=== PATIENT | female | born 1960 | race Caucasian/White ===

== ENCOUNTER → 2021-10-25 | Outpatient (CLI) | payer BC, SELFPAY ==
--- NOTE | 2021-10-25 09:00 | KNEE_PTH ---
PATIENT: NAT COWAN LOC: [facility] U#:[id number] AGE/SX: 61/F ROOM: RE10/25/[address]: Dr. Ye Anguiano MD : 1960 BED: DIS: 10/25/2021 SPEC #: [id number] RECD: 10/25/21 14:59 STATUS: BRIANNA RESade #: [id number] RENA: 10/25/21 09:[address]: Ye Anguiano DEPT: SURGICAL PATHOLOGY RECD BY: Clementine Cruz ENTERED: 10/28/21 08:40 SP TYPE: TOTAL KNEE OTHR DR: CULLEN Tissues: Knee, NOS Procedures: Decalcification bone/plaque Surgery Specimen Level IV HEADER OPERATION: Left total knee replacement PRE-OP DIAGNOSIS: Left knee grade 4 osteoarthritis TISSUE SUBMITTED: Bone and soft tissue left knee MICROSCOPIC DIAGNOSIS Bone and tissue, left knee, total knee replacement/resection: Pieces of bone with degenerative osteoarthritic changes. Fibroadipose tissue, fibroconnective tissue and reactive synovial tissue. ANNABELLA:cresencio 10/31/2021 MICROSCOPIC DESCRIPTION Slides are reviewed. GROSS DESCRIPTION Received is one container designated bone and soft tissue left knee. The specimen consists of multiple fragments of morejon-yellow bone measuring in aggregate 9 x 9 x 3.5 cm. Also in the specimen container are multiple fragments of yellow-white soft tissue measuring in aggregate 7 x 6 x 2.5 cm. A number of bony fragments contain articular surfaces consistent with tibial plateau and femoral condyle and displaying prominent osteophyte formation, eburnation, and bone erosion. [employer] sections are submitted in two cassettes as follows: 1 - soft tissue, 2 - bone after decalcification. / ANNABELLA:cresencio 10/28/2021 TC:5 [facility]: [id number], [id number]
== END | disposition home or self-care (01) ==
LOC: LABSPEC 15:38
PROVIDERS: Referring Provider Orthopaedic Surgery; Visit Provider Orthopaedic Surgery
DX: M17.12 Unilateral primary osteoarthritis, left knee (principal)
CPT/HCPCS: 88305; 88311

== ENCOUNTER → 2021-11-08 | Outpatient (CLI) | payer BC, SELFPAY ==
--- NOTE | 2021-11-08 14:56 | VDLE_ITS ---
Reason For Study: Pain Procedure LEFT This is a venous duplex using B-mode, color GSV is normal. flow and spectral Doppler. CFV is compressible, spontaneous, phasic, Exam performed in department. competent, and demonstrates normal A preliminary report was called and/or faxed augmentation. to [facility]. FV is compressible, spontaneous, phasic, competent and demonstrates normal augmentation. POP V is compressible, spontaneous, phasic, competent and demonstrates normal augmentation. T/P Trunk is compressible. PTV is compressible. LT PerV is compressible. VL/Venous Duplex US, Unilateral Interpretation Summary Deep veins of the left lower extremity are patent and compressible segmentally. There is no evidence of left lower extremity deep vein thrombosis. Valvular competence appears intac t within the proximal deep venous system on the left . The left great saphenous vein appears patent a nd compressible segmentally. Ordering Physician: Mariana Finnegan Referring Physician: Lea Sanches Performed By: Priscilla Escoto RVT
== END | disposition home or self-care (01) ==
LOC: CVS 14:52
PROVIDERS: PCP Internal Medicine; Referring Provider Physician Assistant; Visit Provider Physician Assistant
DX: M79.605 Pain in left leg (principal)
CPT/HCPCS: 93971

== ENCOUNTER → 2022-01-13 | Outpatient (CLI) | payer BC, SELFPAY ==
--- NOTE | 2022-01-13 08:46 | BI_ITS ---
MAMMOGRAPHY - UNILATERAL DIAGNOSTIC: RIGHT BREAST REASON FOR EXAM: Female, 61 years old. Normal outside screening examination. PERTINENT HISTORY: Personal history of breast cancer. Prior left mastectomy. TECHNIQUE: Compression spot views of the right breast in the craniocaudad and mediolateral oblique views were obtained. CAD: Full Field Digital Mammography with Computer Added Detection was performed. COMPARISON: Comparison is made with prior examination dated 03/17/2014 and outside examination dated 11/15/2020. FINDINGS: Breast Composition: There are scattered areas of fibroglandular density. There are no dominant masses or suspicious calcifications. Stable 3.6 mm well-defined nodule in the axillary region of the right breast suggestive of a small left No other significant abnormalities are identified. BI/DIAG MAMM W/CAD, UNILAT IMPRESSION: Stable unilateral diagnostic mammogram. Correlation with a targeted ultrasound of the right breast is recommended. ASSESSMENT CATEGORY: BIRADS Category 0: Incomplete. Need additional imaging evaluation. A letter regarding these results will be sent to the patient by the facility within 30 days. Approximately 10% of breast cancers are not detected by mammography. A normal mammogram should not delay biopsy of a clinically suspicious abnormality. Electronically Signed: Manjinder Horner MD at 12:38 EST ,
--- NOTE | 2022-01-13 08:46 | US_ITS ---
STUDY: ULTRASOUND BREAST - RIGHT REASON FOR EXAM: Female, 61 years old. Abnormal screening mammogram. History of left breast cancer. TECHNIQUE: Axial and longitudinal images of the RIGHT breast were performed with a high resolution ultrasound transducer. # OF IMAGES: 64 COMPARISON: Comparison is made with prior mammogram done earlier in the day. FINDINGS: RIGHT Breast: The upper inner quadrant of the right breast was examined with ultrasound. No sonographic abnormality is seen. Incidental note is made of a benign-appearing 1.3 cm x 0.8 cm x 0.7 cm lymph node. US/Breast Limited Unilateral IMPRESSION: Small benign-appearing right axillary lymph node. ASSESSMENT CATEGORY: BIRADS Category 2: Benign. A letter regarding these results will be sent to the patient by the facility within 30 days. Electronically Signed: Manjinder Horner MD at 15:28 EST ,
== END | disposition home or self-care (01) ==
LOC: OPBI 08:42
PROVIDERS: PCP Internal Medicine; Visit Provider Nurse Practitioner
DX: C50.912 Malignant neoplasm of unspecified site of left female breast (principal); R92.8 Other abnormal and inconclusive findings on diagnostic imaging of breast; Z90.12 Acquired absence of left breast and nipple
CPT/HCPCS: 76642; 77065

== ENCOUNTER → 2022-03-28 | Outpatient (CLI) | payer BC, SELFPAY ==
--- NOTE | 2022-03-28 | KNEE_PTH ---
PATIENT: NAT COWAN [facility] U#:[id number] AGE/SX: 62/F ROOM: RE03/28/[address]: Dr. Ye Anguiano MD : 1960 BED: DIS: 03/28/2022 SPEC #: [id number] RECD: 03/28/22 14:52 STATUS: BRIANNA REQ #: [id number] RENA: 03/28/22 00:[address]: Ye Anguiano DEPT: SURGICAL PATHOLOGY RECD BY: Clementine Cruz ENTERED: 03/31/22 11:19 SP TYPE: TOTAL KNEE OTHR DR: Dr. Lea York, [facility] Tissues: Knee, NOS Procedures: Decalcification bone/plaque Surgery Specimen Level IV HEADER OPERATION: Right total knee replacement PRE-OP DIAGNOSIS: Posttraumatic arthritis right knee TISSUE SUBMITTED: Right knee bone and tissue MICROSCOPIC DIAGNOSIS Bone and soft tissue, right knee, total knee replacement/resection: Pieces of bone with degenerative osteoarthritic changes. Fibroadipose tissue, fibroconnective tissue and reactive synovial tissue. ANNABELLA:cresencio 04/02/2022 MICROSCOPIC DESCRIPTION Slides are reviewed. GROSS DESCRIPTION Received is one container designated bone and soft tissue right knee. The specimen consists of multiple fragments of morejon-yellow bone measuring in aggregate 10.0 x 8.0 x 4.0 cm. Also in the specimen container are multiple fragments of yellow-white soft tissue measuring in aggregate 6.0 x 4.5 x 2.0 cm. A number of bony fragments contain articular surfaces consistent with tibial plateau and femoral condyle and displaying prominent osteophyte formation, eburnation, and bone erosion. Graphic Artist sections are submitted in two cassettes as follows: 1 - soft tissue, 2 - bone after decalcification. / ANNABELLA:cresencio 03/31/2022 TC:5 CPT: [id number], [id number]
== END | disposition home or self-care (01) ==
LOC: LABSPEC 15:04
PROVIDERS: PCP Internal Medicine; Visit Provider Orthopaedic Surgery
DX: M13.861 Other specified arthritis, right knee (principal); Z96.651 Presence of right artificial knee joint
CPT/HCPCS: 88305; 88311

== ENCOUNTER → 2022-04-04 | Outpatient (CLI) | payer BC, SELFPAY ==
--- NOTE | 2022-04-04 14:03 | VDLE_ITS ---
Reason For Study: Pain RIGHT GSV is normal. CFV is compressible, spontaneous, phasic, competent and demonstrates normal augmentation. FV is compressible, spontaneous, phasic, competent and demonstrates normal augmentation. POP V is compressible, spontaneous, phasic, competent and demonstrates normal augmentation. T/P Trunk is compressible. PTV is compressible. RT PerV is compressible. Procedure This is a venous duplex using B-mode, color flow and spectral Doppler. Exam performed in department. A preliminary report was called and/or faxed to [facility]. VL/Venous Duplex US, Unilateral Interpretation Summary There is no evidence of right lower extremity deep vein thrombosis. Right great saphenous vein appears patent and compressible segmentally. Ordering Physician: Mariana Finnegan Referring Physician: Lea York Performed By: Priscilla Escoto RVT
== END | disposition home or self-care (01) ==
PROVIDERS: PCP Internal Medicine; Visit Provider Physician Assistant
DX: R22.41 Localized swelling, mass and lump, right lower limb (principal); M79.661 Pain in right lower leg; Z96.651 Presence of right artificial knee joint
CPT/HCPCS: 93971